=== PATIENT | female | born 1990 | race African-American/Black ===

== ENCOUNTER 2017-05-07 19:28 | Emergency (ER) | payer OTHER ==
[~2017-05-07] VITALS: Ht 147.3 cm; Wt 95.3 kg
[~2017-05-07 19:28] MED LIST: ACETAMINOPHEN325 M1 PO; ADVAIR 250-501 EACH INH; AMOXICILLIN 50500 M1 PO; CLARITIN10 MG PO; COLACE100 MG PO; DAZIDOX10 MG; DAZIDOX10 MG PO; DILAUDID 4 MG TA4 M1 PO; DILAUDID8 MG PO; FOLIC ACID1 MG PO; GAVILAX17 GM PO; GLYCOLAX POWDER17 GM PO; HYDREA 500 MG500 M1 PO; IBUPROFEN 800800 M1 PO; NORCO 5-325 TA1 EACH PO; OXYCODONE IR PO; OXYCONTIN30 MG PO; OXYCONTIN60 MG PO; OXYIR 5 MG CAPSU5 M1 PO; PEPCID40 MG PO; PROTONIX40 M2 PO; VENTOLIN HFA 1818 GM INH; XARELTO20 MG PO; ZOFRAN ODT4 MG PO; ZOFRAN ODT4 MG SUBLING; ZPAK PO
[2017-05-07] MEDS ORDERED: ALLEGRA ALLERG180 MG PO (20:42)
[2017-05-07 21:03] LABS: URINE BILIRUBIN NEGATIVE (Negative); URINE BLOOD 2+ (Negative); URINE CLARITY CLEAR; URINE COLOR YELLOW; URINE GLUCOSE-RANDOM* NEGATIVE (Negative); URINE KETONES NEGATIVE (Negative); URINE LEUKOCYTES 1+ (Negative); URINE NITRITE NEGATIVE (Negative); URINE PROTEIN (DIPSTICK) NEGATIVE (Negative); URINE SPECIFIC GRAVITY <= 1.005 (1.005-1.035); URINE UROBILINOGEN 0.2 E.U./dl (0.2-1.0)
[2017-05-07 21:14] LABS: BACTERIA None Seen /HPF (None Seen); CASTS None Seen /LPF (None Seen); CRYSTALS None Seen /LPF (None Seen); SQUAMOUS 4-10 Moderate /LPF (0-3); URINE RBC 3-10 Few /HPF (0-2); URINE WBC 6-15 Few /HPF (0-5); WBC CLUMPS Few (None Seen)
[2017-05-07 21:48] LABS: ABSOLUTE NEUTROPHILS 6.9 thou/uL (1.4-8.2); BASOPHILS 0.8 % (0.0-2.0); EOSINOPHILS 1.6 % (0.0-3.0); HEMATOCRIT 26.2 % (37.0-47.0); HEMOGLOBIN 8.9 gm/dL (12.0-15.0); LYMPHOCYTES 43.8 % (24.0-44.0); MCHC 33.9 g/dL (28.0-37.0); MCV 67.9 fL (80.0-100.0); MONOCYTES 5.2 % (1.0-8.0); PLATELET COUNT 308 thou/uL (150-400); POLYS 48.6 % (36.0-66.0); RBC 3.86 mil/uL (4.20-5.00); RDW 21.6 % (10.5-14.5); WBC 14.2 thou/uL (4.0-11.0)
[2017-05-07 21:56] LABS: CALCIUM 9.6 mg/dL (8.5-10.1); CREATININE 0.9 mg/dL (0.6-1.0)
[2017-05-07 22:02] LABS: ALBUMIN 3.6 g/dL (3.4-5.0); TOTAL BILIRUBIN 0.7 mg/dL (<0.1-1.0); TOTAL PROTEIN 7.6 g/dL (6.4-8.2)
[2017-05-07 23:15] VITALS: BP 127/79
== END 2017-05-07 23:37 | disposition home or self-care (01) ==
LOC: ER 19:28
PROVIDERS: Nurse Practitioner Family
DX: D57.1 Sickle-cell disease without crisis (principal); G89.29 Other chronic pain; J45.909 Unspecified asthma, uncomplicated; Z90.49 Acquired absence of other specified parts of digestive tract